=== PATIENT | female | born 1990 | race Two or more races ===

== ENCOUNTER 2024-09-26 10:34 | Emergency (ER) | payer OTHER ==
[~2024-09-26] VITALS: Ht 157.5 cm; Wt 83.9 kg
[2024-09-26] MEDS ORDERED: TETANUS & DIPHTHERIA TOX,ADULT 0.5 ML VIAL IM STA (11:46)
[2024-09-26] MEDS ORDERED: TETANUS DIPHTHERIA TOX. ADSOR 5 ML VIAL IM ONE (12:28)
== END 2024-09-26 12:40 | disposition home or self-care (01) ==
LOC: ER 10:37
DX: S61.022A Laceration with foreign body of left thumb without damage to nail, initial encounter (principal); W45.8XXA Other foreign body or object entering through skin, initial encounter; Y93.89 Activity, other specified; Y92.89 Other specified places as the place of occurrence of the external cause